=== PATIENT | female | born 1970 | race Caucasian/White ===

== ENCOUNTER 2024-01-21 14:44 | Outpatient (OUT) | payer OTHER, SELFPAY ==
--- NOTE | 2024-01-18 07:56 | VEINCLINIC_ITS ---
Vital Signs 01/21/24 15:10 BP 106/54 BP Location Left Brachial BP Position Sitting BP Cuff Size Adult BP Source Manual Cuff Respiration 16 Pulse 77 Pulse Source Monitor Pulse Oximetry (%) 98 Oxygen Delivery Method Room Air Varicose Veins Patient is a 53 year old female in this day with c/o bilateral leg spider veins. Patient denies pain/edema any other symptomology. IPascual MD personally performed the services described in this documentation, as scribed by Jay Hsu RN in my presence and it is both accurate and complete. IJay RN, am scribing for, and in the presence of, Dr. Pascual Claros and in the presence of the patient. Reports no additional symptoms PFSH PFS Medical History (Updated 01/21/24 @ 15:16 by Jay Hsu) Lumbar arthropathy ?M47.816 - Spondylosis without myelopathy or radiculopathy, lumbar region (ICD-10) Laceration of right biceps brachii muscle ?S46.221A - Laceration of muscle, fascia and tendon of other parts of biceps, right arm, initial encounter (ICD-10) Rotator cuff arthropathy ?M12.819 - Other specific arthropathies, not elsewhere classified, unspecified shoulder (ICD-10) Bunion ?M21.619 - Bunion of unspecified foot (ICD-10) Pain due to varicose veins of both lower extremities ?I83.813 - Varicose veins of bilateral lower extremities with pain (ICD-10) Migraine ?G43.909 - Migraine, unspecified, not intractable, without status migrainosus (ICD-10) Surgical History (Updated 01/21/24 @ 15:16 by Jay Hsu) History of appendectomy ?Z90.49 - Acquired absence of other specified parts of digestive tract (ICD- 10) History of cholecystectomy ?Z90.49 - Acquired absence of other specified parts of digestive tract (ICD- 10) Family History (Updated 01/21/24 @ 15:17 by Jay Hsu) Other Family history of cancer Family history of diabetes mellitus Family history of myocardial infarction Social History (Updated 01/21/24 @ 15:18 by Jay Hsu) Within the past year, how often did you have a drink containing alcohol: monthly or less Smoking status: Never smoker Non-prescribed substance use: denies use Meds Home Medications and Allergies Home Medications ?Medication ?Instructions ?Recorded ?Confirmed ?Type testosterone cypionate .ROUTE hormone replacement 01/21/24 History Allergies Allergy/AdvReac Type Severity Reaction Status Date / Time No Known Drug Allergies Allergy Verified 01/21/24 15:19 Exam Constitutional Documenting provider has reviewed patient's vital signs: yes Common normals: oriented x3 Cardio Peripheral pulses: posterior tibial pulses present and dorsalis pedis pulses p resent Extremity Common normals: normal capillary refill Neuro Common normals: oriented x3 Assessment and Plan Assessment and Plan (1) Pain due to varicose veins of both lower extremities: Plan Patient to return for self-pay sclerotherapy as necessary
--- NOTE | 2024-01-18 07:56 | P.DS_ITS ---
Discharge Plan Discharge Disposition: Home, Self-Care Print Language: [place]
[2024-01-21 15:10] VITALS: BP 106/54; PULSE 77; O2SAT 98
== END 2024-01-21 14:45 | disposition home or self-care (01) ==
PROVIDERS: PCP Radiology Diagnostic Radiology; Visit Provider Radiology Diagnostic Radiology
DX: I83.813 Varicose veins of bilateral lower extremities with pain (principal)